=== PATIENT | female | born 1980 | race Caucasian/White ===

== ENCOUNTER 2017-01-08 02:58 | Inpatient (IN) | payer OTHER ==
[~2017-01-08] VITALS: Ht 157.5 cm; Wt 51.7 kg
[2017-01-08 03:26] LABS: HEMOGLOBIN 12.6 gm/dl (12.3-15.3); RED BLOOD COUNT 3.96 M/UL (4.00-5.10); WHITE BLOOD COUNT 21.7 K/UL (4.5-11.0)
[2017-01-09 03:56] LABS: HEMOGLOBIN 11.4 gm/dl (12.3-15.3)
[2017-01-09] MEDS ORDERED: COLACE 100MG C100 MG PO (11:59)
== END 2017-01-09 14:04 | disposition home or self-care (01) | DRG 775 ==
LOC: GENOP 02:58 → OB 03:20
PROVIDERS: Obstetrics & Gynecology; ADMIT Obstetrics & Gynecology
PROC: 0W8NXZZ Division of Female Perineum, External Approach (ICD-10-PCS; principal; 2017-01-08)
PROC: 10E0XZZ Delivery of Products of Conception, External Approach (ICD-10-PCS; 2017-01-08)
PROC: 3E0R3CZ (ICD-10-PCS; 2017-01-08)
DX: O99.334 Smoking (tobacco) complicating childbirth (principal); F17.200 Nicotine dependence, unspecified, uncomplicated; Z3A.39 39 weeks gestation of pregnancy; Z37.0 Single live birth; Z87.440 Personal history of urinary (tract) infections; Z90.49 Acquired absence of other specified parts of digestive tract; Z98.890 Other specified postprocedural states
CPT/HCPCS: 36415; 51702; 82800; 83518; 85014; 85018; 85025; G0463; J2590; J2795; J3430; J7120